=== PATIENT | female | born 1930 | race Caucasian/White ===

== ENCOUNTER 2016-12-31 14:36 | Emergency (ER) | payer MEDICARE, OTHER ==
[2016-12-31 17:09] LABS: BASOPHILS 0.2 %; BASOPHILS ABSOLUTE 0.01 10/3/uL (0.0-0.16); EOSINOPHILS 0.2 %; EOSINOPHILS ABSOLUTE 0.01 10/3/uL (0.0-0.53); ER CBC TAT 0 Hrs 13 Mins; IMMATURE GRANULOCYTES 0.2 %; IMMATURE GRANULOCYTES ABSOLUTE 0.01 10/3/uL (0.0-0.11); LYMPHOCYTES 24.2 %; LYMPHOCYTES ABSOLUTE 1.55 10/3/uL (0.67-4.30); MEAN CORPUSCULAR HEMOGLOB 31.7 pg (26.0-34.0); MEAN PLATELET VOLUME 12.7 fL (9.2-13.0); MONOCYTES 9.1 %; MONOCYTES ABSOLUTE 0.58 10/3/uL (0.21-1.20); NEUTROPHILS 66.1 %; NEUTROPHILS ABSOLUTE 4.24 10/3/uL (2.02-8.40); PLATELET COUNT 145 10/3/uL (150-400); RBC DISTRIBUTION WIDTH 13.3 % (12.0-16.0); WHITE BLOOD CELLS 6.4 10/3/uL (4.5-10.5)
[2016-12-31 17:11] LABS: HEMATOCRIT 42.8 % (36.0-48.0); HEMOGLOBIN 14.3 g/dL (12.0-16.0); MANUAL DIFF NO %; MEAN CORPUS HGB CONC 33.4 g/dL (32.0-36.0); MEAN CORPUSCULAR VOLUME 94.9 fL (80-100); RED CELL COUNT 4.51 10/6/uL (4.0-5.6)
[2016-12-31 17:23] LABS: A/G RATIO 1.1 (0.7-1.9); ALBUMIN 3.7 G/DL (3.5-5.0); ALKALINE PHOSPHATASE 60 U/L (45-117); BUN (BLOOD UREA NITROGEN) 12 MG/DL (6-23); CALCIUM, SERUM 9.6 MG/DL (8.5-10.4); CHLORIDE, SERUM 103 MMOL/L (96-112); CO2 (CARBON DIOXIDE) 31 MMOL/L (24-34); GFR AFRICAN AMERICAN 92 ML/MIN (>=60); GFR NON AFRICAN AMERICAN 80 ML/MIN (>=60); GLOBULIN 3.4 G/DL (2.5-4.1); GLUCOSE, SERUM 101 MG/DL (60-99); POTASSIUM, SERUM 3.6 MMOL/L (3.5-5.3); SGOT(AST) 21 U/L (5-40); SGPT(ALT) 18 U/L (5-65); SODIUM, SERUM 140 MMOL/L (135-148); TOTAL BILIRUBIN 0.5 MG/DL (0-1.2); TOTAL PROTEIN 7.1 G/DL (6.0-8.5)
[2016-12-31 17:24] LABS: INTERNATIONAL NORMAL RATI 1.1 UNITS (-); PROTIME (NOT ORD) 13.6 SEC (12.0-14.5)
[2016-12-31 17:55] LABS: SED RATE 6 MM/HR (0-20)
== END 2016-12-31 18:30 | disposition home or self-care (01) ==
LOC: ER 14:36
PROVIDERS: Emergency Medicine
DX: H53.8 Other visual disturbances (principal); Z88.0 Allergy status to penicillin
CPT/HCPCS: 70450; 71010; 80053; 85025; 85610; 85652; 93005; 96374; 99284; J2405

== ENCOUNTER 2017-01-22 15:00 | Inpatient (IN) | payer MEDICARE, OTHER ==
--- NOTE | ~2017-01-22 | CN ---
Consultation Report [facility] [address] [facility] [place]. [address] NAME: GALEN CORRALES : 32 STATUS : ADM IN [facility]#: [id number] AGE: 87 ADM/REG DATE : 01/23/17 MR#: [id number] REPORT SERV DATE: 01/23/17 DICTATED BY: EMMY MAYORGA DATE: 01/23/17 REPORT STATUS : Draft TRANSCRIBED BY: MODL DATE: 01/23/17 NEUROLOGY CONSULTATION DATE OF CONSULTATION: 01/23/2017 SQL DBA: Dr. Kalen Crews. WAVE SOLDER OFFBEARER: Dr. Gama. REASON FOR CONSULTATION: Sudden loss of vision and generalized weakness. HOSPITALIST: Dr. Ned Ahmadi. HISTORY OF PRESENT ILLNESS: The patient is an 87-year-old female who started to have trouble with her vision approximately two to three weeks ago. This occurred in her right eye. 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 She went to see an elder counselor here in [facility] (Dr. Gama), who did an examination and thought that she possibly had orbital pseudotumor. He referred her to Dr. Nigel dykes at [facility] for a biopsy and he felt that she needed to have permission from her chemical laboratory assistant, Dr. Crews before undergoing this. The patient was about to undergo her biopsy down at [facility] when she became significantly weak and was not able to stand. Consequently, she came to the emergency department at [facility] for further evaluation and treatment. According to the patient's son, the patient has experienced failure to thrive, nausea, and has not eaten much over the last six months. She has a history of adrenal mass and recently was found to have hilar adenopathy. At this point, the patient does not complain of any headache, eye pain, nausea, vomiting, photophobia, or phonophobia. PAST MEDICAL HISTORY: Coronary artery disease (status post coronary artery bypass grafting 2006), COPD (oxygen dependent), and hypertension. PAST SURGICAL HISTORY: Coronary artery bypass grafting 2006 with AVR, cholecystectomy, and partial colectomy. SOCIAL HISTORY: The patient is a . She denies use of tobacco. Does not drink alcohol or use illicit drugs. FAMILY HISTORY: Significant for coronary artery disease. REVIEW OF SYSTEMS: Please refer to HPI for pertinent positives. Consultation Report [place] [id number] [facility] [place]. [address] NAME: GALEN CORRALES : 32 STATUS : ADM IN PAT#: [id number] AGE: 87 ADM/REG DATE : 01/23/17 MR#: [id number] REPORT SERV DATE: 01/23/17 DICTATED BY: EMMY MAYORGA DATE: 01/23/17 REPORT STATUS : Draft TRANSCRIBED BY: BLESSING DATE: 01/23/17 PHYSICAL EXAMINATION: VITAL SIGNS: The patient is an 87-year-old female, who stands 5 feet 4 inches tall and weighs 172 pounds. She is afebrile. Heart rate 80, respiratory rate 18, O2 saturation on 3 L nasal cannula are 95%, blood pressure 143/65. NEURO: The patient is alert. She is oriented x4. She has a flat affect, but can communicate appropriately and follow simple commands. Speech is clear. Language is fluent. The patient has significant ptosis of the right eye. She has proptosis. Pupil on the right is 6 mm, on the left is 4 mm. Pupil on the right is sluggish to react. Funduscopic exam, positive red reflex bilaterally. Normal disc cup ratio. No nicking, hemorrhaging, or papillary edema on the left. Slight papillary edema on the right. 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 EOMs are intact on the left. Peripheral vision is intact on the left. No other cranial nerve deficits are noted upon examination. The patient can move all extremities x4. She has slight tremor with [id number], but no ataxia. No pronator drift. No asterixis. No dysmetria. Upper extremity strength is 4/5 bilaterally. Upper DTRs 1+ bilaterally. No reported deficits and sensation when comparing the upper extremities. Lower extremity strength is 3/5 bilaterally. Lower DTRs 1+ bilaterally. Downgoing toes. No reported sensory deficits. NECK: No carotid bruits, JVD, thyromegaly, lymphadenopathy. CHEST: Lung sounds are relatively clear. No cough. CARDIAC: Regular rate and rhythm. LABORATORY DATA: CBC within normal range. INR 1.2. BMP: Potassium is 3.8. Blood sugar is 138. LDH 337. BNP 117. RA factor within normal range. Sedimentation rate is 3. Urinalysis is mildly positive for UTI. CT of the chest shows right hilar and extensive mediastinal adenopathy likely metastatic disease bilateral adrenal masses, which may represent metastasis, spiculated nodule in the left upper lobe, possible primary neoplasm, aneurysmal dilatation of the distal ascending aorta, COPD, and coronary artery bypass grafting. ASSESSMENT: 1. Sudden loss of vision of the right eye; etiology unknown. a. Total ophthalmoplegia of the right eye. At this point, the patient will undergo an MRI of the brain with and without gadolinium to rule out metastasis and/or tumor. MRA of the head and neck with gadolinium to rule out aneurysm and MRI of the orbits with fatty suppression to include the cavernous sinus. b. 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 The patient's elder counselor in [place] will be contacted for possible transfer for biopsy and we will progress from there. Also additional autoimmune lab work will be checked. 2. 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 3. Mild urinary tract infection. Thank you again for including us in consultation. We will continue to follow with you. Consultation Report [address] [address] NAME: GALEN CORRALES : 32 STATUS : ADM IN [facility]#: [id number] AGE: 87 ADM/REG DATE : 01/23/17 MR#: [id number] REPORT SERV DATE: 01/23/17 DICTATED BY: EMMY MAYORGA DATE: 01/23/17 REPORT STATUS : Draft TRANSCRIBED BY: BLESSING DATE: 01/23/17 BALBIR/BLESSING Emmy Mayorga DNP, [facility]- / [id number] CC: Nicolas Brito M.D. Mark Thel, M.D. Gene K. Lee, M.D. Ryan Scott McNamara, M.D.
--- NOTE | ~2017-01-22 | HP ---
History And Physical [place] [address] [place]. [address] NAME: GALEN CORRALES : 32 STATUS : ADM Charley PAT#: [id number] AGE: 87 ADM/REG DATE : 01/22/17 MR#: [id number] REPORT SERV DATE: 01/23/17 DICTATED BY: MARIBELL KING DATE: 01/22/17 REPORT STATUS : Draft TRANSCRIBED BY: MODL DATE: 01/22/17 DATE OF ADMISSION: 01/22/2017 CHIEF COMPLAINT: Progressive weakness, nausea, and recent diagnosis of possible orbital pseudotumor. HISTORY OF PRESENT ILLNESS: This is a very pleasant 87-year-old female. She does have a history of coronary artery disease, status post prior CABG; history of aortic valve replacement in 2006; biological COPD, oxygen dependent on 4 L of oxygen per nasal cannula; also chronic back pain; and hyperlipidemia. At about two to three weeks ago, she started to experience trouble vision and in fact she become blind as well as according to the patient and the family progressive weakness. The patient seen a couple of Ophthalmologists during this period of time including last Dr. Gama who ordered an MRI of her orbits and the results of the MRI showed a questionable possible orbital pseudotumor. She has been referred after that to Dr. Manning, who referred the patient for a biopsy at [facility]. During this period of time, the patient has significant nausea and decreased appetite and progressive weakness. No headaches. No chest pain or increasing shortness of breath. She went to [facility] yesterday and they evaluated her and they wanted the preoperative clearance from her section 8 property manager, Dr. Crews. The patient sought preoperative clearance and she came back being awaiting from [facility] to be evaluated for possible biopsy of the ocular mass. However, she became so weak to the point that she is barely walking. She did not have she has generalized weakness. She does not have any again headache, chest pain, or shortness of breath. No PND. No orthopnea. No abdominal pain. No nausea or vomiting. No diarrhea or constipation. No increased urinary frequency or urgency. No other complaints. After initial evaluation in the emergency room, Hospitalist Service has been asked for admission, further evaluation, and treatment. 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 PAST SURGICAL HISTORY: Includes cholecystectomy and partial colectomy. SOCIAL HISTORY: She denies tobacco, she quit in 2006. No alcohol. No IV drugs. ALLERGIES: SHE IS ALLERGIC TO PENICILLIN AND IRON. FAMILY HISTORY: Significant for coronary artery disease. MEDICATIONS AT HOME: Include Norvasc, Artificial Tears, aspirin, [place], [place], losartan, MS Contin, prednisone, and Crestor. REVIEW OF SYSTEMS: A 14-point review of systems has been obtained and pertinent positive has been listed into the history of present illness. Otherwise, negative except those underlying above. History And Physical [address] [address] NAME: GALEN CORRALES : 32 STATUS : ADM Charley PAT#: [id number] AGE: 87 ADM/REG DATE : 01/22/17 MR#: [id number] REPORT SERV DATE: 01/23/17 DICTATED BY: MARIBELL KING DATE: 01/22/17 REPORT STATUS : Draft TRANSCRIBED BY: BLESSING DATE: 01/22/17 PHYSICAL EXAMINATION: VITAL SIGNS: Currently, the patient is afebrile. Blood pressure was 160/75, heart rate 81, respiratory rate 12, and saturating 100% on room air. GENERAL: She is a very pleasant, well-developed, well-nourished female, in no acute distress. She is alert and oriented x3. She is nonfocal. She follows all commands appropriately. HEENT: Show pupils are equal, round, and reactive to light. Extraocular movements intact. NECK: No JVD. No lymphadenopathy. No thyromegaly appreciated. CHEST: Eval shows bilateral air entry. Clear anteroposterior. No wheezes, crackles, or rhonchi appreciated. CARDIOVASCULAR: She has regular rate and rhythm. S1, S2 positive. No S3, no S4. No murmurs, rubs, or gallops appreciated. ABDOMEN: Soft, positive bowel sounds. Nontender. No guarding. No rebound. EXTREMITIES: No clubbing, cyanosis, or edema. NEUROLOGIC: She is alert and oriented x3. Nonfocal. She follows all her commands appropriately. LABORATORY DATA: Labs from today include sodium 143, potassium 2.8, chloride 104, CO2 of 32, BUN 19, creatinine 0.69, glucose is 113. Her total bilirubin is 0.8, alkaline phosphatase 51, ALT 27, AST 33. White count 12.2, hemoglobin 14.2, hematocrit 41.6, platelets are 189. Her UA has shown positive for just trace leukocyte esterase and 7 white cells. Her chest x-ray, portable, performed in the emergency room showed prior CABG and possible superior right peripheral hilar adenopathy unchanged. ASSESSMENT AND PLAN: This is a very pleasant 87-year-old female with: 1. Progressive weakness with failure to thrive. 2. 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 3. Possible superior right peripheral hilar adenopathy. 4. Hypokalemia. 5. History of coronary artery disease, status post CABG. 6. Chronic obstructive pulmonary disease, oxygen dependent. 7. Hypertension. 8. Chronic back pain. PLAN: 1. The patient is going to be admitted for observation. We are going to put her on IV fluids. We are going to do an MRI of the brain as well as of the orbits in the morning and CT of the chest. We are going to check an ESR and a CRP and double-stranded DNA and JAM as well as rheumatoid factor and consult Neurology for further recommendation and frequent neurochecks. 2. Hypokalemia. We are going to replace her electrolytes. 3. History of coronary artery disease, status post CABG. Continue her home medications. 4. Possible on the superior right peripheral hilar adenopathy. We are going to get a CT of the chest with contrast. 5. Hypertension. Continue her home medication. Provide p.r.n. hydralazine as needed. 6. Chronic back pain. We will continue her home medications. History And Physical [address] [address] NAME: GALEN CORRALES : 32 STATUS : ADM Charley PAT#: [id number] AGE: 87 ADM/REG DATE : 01/22/17 MR#: [id number] REPORT SERV DATE: 01/23/17 DICTATED BY: MARIBELL KING DATE: 01/22/17 REPORT STATUS : Draft TRANSCRIBED BY: MODL DATE: 01/22/17 7. Hyperlipidemia. We will continue her home medications. Further workup and recommendation pending above. It is worthwhile to note that the patient is going to be followed by Hospitalist Service. CF/MODL Maribell King M.D. / [id number] CC: Nicolas Peng N.P.
--- NOTE | ~2017-01-22 | DS ---
Discharge Summary [facility] [address] [place]. [address] NAME: GALEN CORRALES : 32 STATUS : ADM IN PAT#: [id number] AGE: 87 ADM/REG DATE : 01/23/17 MR#: [id number] REPORT SERV DATE: 02/04/17 DICTATED BY: KEISHA AYOUB II DATE: 02/03/17 REPORT STATUS : Draft TRANSCRIBED BY: MODCynthia DATE: 02/03/17 ADMISSION DATE: 01/23/2017 DISCHARGE DATE: 02/04/2017 DISCHARGE DIAGNOSES: 1. Metastatic small cell lung cancer. 2. Acute on chronic hypoxic respiratory failure. 3. Chronic obstructive pulmonary disease. 4. 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 5. Hypertension. 6. Hypokalemia. 7. Leukocytosis. CONSULTS: 1. iRcardo Emerson M.D. With [facility]. 2. Alex Langford M.D. with Pulmonary. 3. Ronak Perry M.D. with Neurology. BRIEF HISTORY OF PRESENT ILLNESS: The patient is an 87-year-old female with the above history, who presented to [facility] initially due to weakness, nausea, and ophthalmoplegia. For detailed history and physical examination, please see Dr. Lemos's note from 01/22/2017. HOSPITAL COURSE: For details of the patient's hospital course through 01/27/2017, please see Amber Burns's note from that date. I subsequently took over the patient's care. She had a bronch with biopsy taken and pathology subsequently came back with small cell carcinoma. Since then, Dr. Emerson has initiated chemotherapy with carboplatin and etoposide for which she is completed cycle 1 and will receive her next round on 02/10/2017. The patient tolerated the chemotherapy quite well. She has had bouts of hypotension, so her Norvasc and losartan has been held especially as her creatinine has started to rise slightly. She also had some worsening hypoxia and was noted to drop down in the 70s going to the bathroom. Chest x-ray showed increasing bibasilar atelectasis and mild interstitial edema. She received a couple doses of Lasix yesterday in the night. Currently, she denies any symptoms of significant shortness of breath and her cough has improved. Her white count increased to 14 today; however, there is no obvious source of infection and her urinalysis is negative. She is debilitated and PT has recommended detention. At this point, she is pending placement and will go to [facility] hopefully tomorrow. DISCHARGE MEDICATIONS: 1. Folic acid 1 mg p.o. daily. 2. MS Contin 30 mg p.o. q.8 hours. 3. [place] 10/325 mg p.o. q.6 hours p.r.n. 4. Deltasone 40 mg p.o. with lunch. 5. Crestor 20 mg p.o. q.h.s. 6. Artificial Tears b.i.d. p.r.n. DISCHARGE INSTRUCTIONS: The patient will be discharged to [facility] for further rehab. Discharge Summary [address] [address] NAME: GALEN CORRALES : 32 STATUS : ADM IN [facility]#: [id number] AGE: 87 ADM/REG DATE : 01/23/17 MR#: [id number] REPORT SERV DATE: 02/04/17 DICTATED BY: KEISHA AYOUB II DATE: 02/03/17 REPORT STATUS : Draft TRANSCRIBED BY: BLESSING DATE: 02/03/17 She will need to follow with Dr. Emerson on 02/10/2017 for cycle 2 of chemotherapy. DICTATED BY: MD MARLON Malik II/BLESSING Keisha Ayoub II, MD / [id number] CC: MD Renetta Malik II, M.D.
--- NOTE | ~2017-01-22 | DS ---
Discharge Summary [facility] [address] [place]. [address] NAME: GALEN CORRALES : 32 STATUS : ADM IN PAT#: [id number] AGE: 87 ADM/REG DATE : 01/23/17 MR#: [id number] REPORT SERV DATE: 02/04/17 DICTATED BY: JODY BURNS DATE: 02/04/17 REPORT STATUS : Draft TRANSCRIBED BY: MODL DATE: 02/04/17 ADMISSION DATE: 01/23/2017 DISCHARGE DATE: 02/04/2017 DISCHARGE DIAGNOSES: 1. Metastatic small cell lung cancer. 2. Iyzgd-vp-sobzoto hypoxic respiratory failure. 3. Chronic obstructive pulmonary disease. 4. 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 5. Hypertension. 6. Hypokalemia. 7. Leukocytosis. CONSULTATIONS: 1. Oncology, Dr. Emerson. 2. Pulmonology, Dr. Langford. 3. Neurology, Dr. Perry. COURSE AT HOSPITAL STAY: Please refer to the history and physical dictated by Dr. Maribell Lemos on 01/22/2017, for complete admission details as well as consultation note and interim notes. This patient is an 87-year-old female who presented with the above history. She did initially have complaints regarding weakness, nausea, and ophthalmoplegia. The patient did undergo a bronchoscopy, which pathology revealed small cell carcinoma. Oncology was consulted and the patient did receive one cycle of chemotherapy via PROFESSOR OF LITERACY-16 and carboplatin. She will receive cycle 2 on 02/10/2017. The patient did tolerate chemotherapy. O2 at this time is at baseline. The patient has had periods of hypertension, blood pressure medications have been held, and the patient has been monitored. Repeat chest x-ray has shown bibasilar atelectasis and mild interstitial edema. The patient did receive several doses of Lasix. The patient at this time is in stable condition and will be transferred to rehab for continued rehabilitation. She will follow up with Oncology on 02/10/2017, for possible cycle 2 of carboplatin and PROFESSOR OF LITERACY-16. power manager has been working with the patient. DISCHARGE MEDICATIONS: 1. Folic acid 1 mg p.o. daily. 2. MS Contin 30 mg one p.o. every eight hours. 3. Hydrocodone 10/325 mg one every six hours p.r.n. 4. Prednisone 10 mg one p.o. every day. 5. Crestor 20 mg one p.o. at bedtime. 6. Artificial Tears b.i.d. p.r.n. This discharge took less than 30 minutes. DICTATED BY: Jody Burns NP Discharge Summary [address] [address] NAME: GALEN CORRALES : 32 STATUS : ADM IN [facility]#: [id number] AGE: 87 ADM/REG DATE : 01/23/17 MR#: [id number] REPORT SERV DATE: 02/04/17 DICTATED BY: JODY BURNS DATE: 02/04/17 REPORT STATUS : Draft TRANSCRIBED BY: BLESSING DATE: 02/04/17 /BLESSING Jody Burns NP / [id number] CC: Nicolas Brito M.D.
--- NOTE | ~2017-01-22 | CN ---
Consultation Report [facility] [address] [place]. [address] NAME: GALEN QUIÑONES : 32 STATUS : ADM IN PAT#: [id number] AGE: 87 ADM/REG DATE : 01/23/17 MR#: [id number] REPORT SERV DATE: 01/24/17 DICTATED BY: RICARDO CLEARY III DATE: 01/24/17 REPORT STATUS : Draft TRANSCRIBED BY: MODCynthia DATE: 01/24/17 CONSULTATION DATE OF CONSULTATION: 01/24/2017 REASON FOR CONSULTATION: Small cell lung cancer. HISTORY OF PRESENT ILLNESS: Ms. Quiñones is an 87-year-old female, who developed right eye vision loss roughly two weeks ago. Around this time, she also developed profound fatigue, but these progressively worsened over the past couple of weeks. She did not have any cough, shortness of breath, or hemoptysis. She also denies any recent weight loss. She does note there is some shortness of breath with exertion, has been slowly worsening. Workup for her right eye vision loss revealed a periorbital mass. As part of workup for this, a chest x- ray showed a mediastinal mass. She was admitted on 01/23/2017 for worsening nausea, vomiting, and poor appetite. A CT scan did confirm a mediastinal mass and lymphadenopathy as well as likely adrenal metastasis. She underwent bronchoscopy with EBUS with preliminary pathology revealing a small cell lung cancer. Presently, she is comfortable without any shortness of breath or chest pain. Her nausea is much improved with antiemetics and she has been eating more since being in the hospital. PAST MEDICAL HISTORY: 1. Coronary artery disease. 2. Aortic valve disease. 3. COPD. 4. History of CVA. 5. Hypertension. 6. Hyperlipidemia. ALLERGIES: SHE HAS A RASH WITH PENICILLIN. CURRENT MEDICATIONS: Her home med list was reviewed and per the home med list. SOCIAL HISTORY: She has a previous heavy smoking history of 55-pack years, but did stop a while ago. FAMILY HISTORY: Significant for a son who had a widely metastatic cancer. REVIEW OF SYSTEMS: A comprehensive review of systems was performed and is negative unless noted in the HPI. PHYSICAL EXAMINATION: VITAL SIGNS: Blood pressure is 117/56, temperature is 98.3, pulse is 101, respiratory rate is 18. GENERAL: This is a well-developed elderly female, in no acute distress. Consultation Report [place] [address] [place]. [address] NAME: GALEN QUIÑONES : 32 STATUS : ADM IN PAT#: [id number] AGE: 87 ADM/REG DATE : 01/23/17 MR#: [id number] REPORT SERV DATE: 01/24/17 DICTATED BY: RICARDO CLEARY III DATE: 01/24/17 REPORT STATUS : Draft TRANSCRIBED BY: MODL DATE: 01/24/17 EYES: Left eye with intact extraocular muscles. The right eye appears fixated. There are anicteric sclerae. NECK: Supple with no masses or thyroid enlargement. No JVD. CARDIOVASCULAR: Regular rate and rhythm with no audible murmurs. There is no peripheral edema. LUNGS: Clear to auscultation bilaterally with normal respiratory effort. ABDOMEN: Soft, nondistended, and nontender with no hepatosplenomegaly. SKIN: Warm and dry with good skin turgor. There is no jaundice. LYMPHATIC: Negative for any cervical, supraclavicular, or axillary lymphadenopathy. PSYCH: She is alert, oriented, and comprehends our conversation with normal judgment and affect. LABORATORY DATA: Her lab work was reviewed and with normal renal function. Her CT imaging was personally reviewed. There is a large, bulky mediastinal and hilar lymphadenopathy. There are also adrenal masses bilaterally as well as a liver nodule. There are no noted bone lesions. ASSESSMENT AND PLAN: 1. Likely metastatic small cell lung cancer. I did review the suspected diagnosis and prognosis. We will await final pathology. I did explain treatment options of palliative chemotherapy. She does have a borderline performance status. I will likely start carboplatin and etoposide once the pathology is finalized. 2. Right eye mass. I do suspect this is likely a metastatic lesion. BMA/BLESSING Ricardo Cleary III, M.D. / [id number] CC: Nicolas Brito M.D.
--- NOTE | ~2017-01-22 | OP ---
Record Of Operation [facility] [address] [place]. [address] NAME: GALEN CORRALES : 34 STATUS : ADM IN PAT#: [id number] AGE: 87 ADM/REG DATE : 01/23/17 MR#: [id number] REPORT SERV DATE: 01/24/17 DICTATED BY: LEOBARDO LANGFORD IV TADEO DATE: 01/24/17 REPORT STATUS : Draft TRANSCRIBED BY: MODCynthia DATE: 01/24/17 DATE OF PROCEDURE: 01/24/2017 EBUS PROCEDURE NOTE PREOPERATIVE DIAGNOSIS: Conglomerate nodes in the mediastinum with peripheral nodules concerning for bronchogenic carcinoma, likely small cell. 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 PROCEDURE: Bronchoscopy with EBUS and sampling of the 4R area conglomerate lymph node mass. INDICATIONS: Pulmonary nodules with conglomerate adenopathy throughout the mediastinum. CONTRAINDICATIONS: None. CONSENT: The risks, benefits, and alternative evaluations were discussed with the patient and her family. Possible complications reviewed to include air leak around the lung, bleeding, infection, low oxygen level, and even potentially . The consent is signed and witnessed on the front of the chart. PREOPERATIVE LABS: The patient's platelet count was 187,000. SENIOR NET SOFTWARE ENGINEER: Leobardo Langford M.D. METHOD: The patient was taken to the bronchoscopy suite at [facility] and prepared in the usual manner. Anesthesiology was consulted to provide airway management as well as sedation. This was provided via an LMA airway. Once the airway was secured, the patient was sedated, the bronchoscope was advanced through the LMA without difficulty. It sat appropriately on the vocal cords. The vocal cords moved appropriately with respiratory effort. Total of 20 mL of 2% lidocaine solution was used throughout the procedure to provide airway anesthesia. The distal trachea was boggy and slightly hyperemic with widening of the main dona. There were slightly ectatic airways with bronchial pits. All airways were patent now beyond the fourth-generation bronchi with normal anatomy. After inspection had occurred, there were no endobronchial lesions or abnormal secretions. After inspection had occurred, the bronchoscope was removed, and the EBUS scope was advanced down the trachea. There was extensive adenopathy/mass through the 4L, 4R, and 2R regions. The level 7 lymph node was also markedly enlarged. A sampling was obtained in the 4R region. Two samples were provided for slide and 5 for cell block and 2 for flow cytometry. On all but one of the samplings for slide and 1 for cell block, suction was provided to the needles. On each sampling, the needle was advanced 25 to 35 times. On initial review, there were malignant cells probably representing small-cell carcinoma; however, we will do flow cytometry for lymphoma. The patient, otherwise, tolerated the procedure well. After adequate sampling had been obtained, the EBUS scope was removed and the bronchoscope was then readvanced. There was some blood staining through the airways with appropriate puncture sites in the 4R region. There was no active bleeding. Estimated blood loss was Record Of Operation [address] [place]. [address] NAME: GALEN CORRALES : 34 STATUS : ADM IN [facility]#: [id number] AGE: 87 ADM/REG DATE : 01/23/17 MR#: [id number] REPORT SERV DATE: 01/24/17 DICTATED BY: LEOBARDO LANGFORD IV DATE: 01/24/17 REPORT STATUS : Draft TRANSCRIBED BY: BLESSING DATE: 01/24/17 less than 5 mL. The procedure was stopped at that time, and the patient was recovered. She was informed of the results. I will talk with the family. We will consult Oncology. SAAD/BLESSING Leobardo Langford IV, M.D. / [id number] CC: Nicolas Brito M.D.
--- NOTE | ~2017-01-22 | CN ---
Consultation Report [facility] [address] [place]. [address] NAME: GALEN QUIÑONES : 34 STATUS : ADM IN [facility]#: [id number] AGE: 87 ADM/REG DATE : 01/23/17 MR#: [id number] REPORT SERV DATE: 01/23/17 DICTATED BY: LEOBARDO LANGFORD IV DATE: 01/23/17 REPORT STATUS : Draft TRANSCRIBED BY: MODCynthia DATE: 01/23/17 PULMONARY CONSULTATION DATE OF CONSULTATION: 01/23/2017 REASON FOR REQUEST: Mediastinal mass/adenopathy with pulmonary nodules. HISTORY OF PRESENT ILLNESS: History was obtained from the records and from the patient. Ms. 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 The patient was in her normal state of health until early December when she developed acute onset of vision loss in the right eye. She had an MRI demonstrating a thickening of a muscle for which she underwent evaluation in [place]. As part of that evaluation, a chest x-ray was obtained, which demonstrated a right peritracheal and hilar fullness with a rotated film. The patient has had progressive weakness and for which she presented to the emergency room. 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 The patient denies cough, sputum production, fevers, chills, or sweats. She has had no significant weight loss. She has a nebulizer that she uses p.r.n. at home though she is on no maintenance medications. She is on 4 L supplemental oxygen chronically with a very limited exercise tolerance. PULMONARY HISTORY: Remarkable for no history of childhood asthma. She is aware of the diagnosis of COPD. She denies history of pneumonia. She has a more than [id number] smoking history having quit in 2006. 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 She is reportedly up to date on both seasonal influenza vaccine as well as Pneumovax. PAST MEDICAL HISTORY/MEDICAL ILLNESSES: 1. Coronary artery disease. 2. Aortic valvular disease. 3. COPD. 4. Hypoxemia. 5. Cerebrovascular disease. 6. Hypertension. 7. Elevated cholesterol. 8. Recent loss of vision and ophthalmoplegia in the right eye. 9. Pulmonary nodules. 10.Extensive mediastinal adenopathy/mass. SURGERIES: Consultation Report [address] [place]. [address] NAME: GALEN QUIÑONES : 34 STATUS : ADM IN [facility]#: [id number] AGE: 87 ADM/REG DATE : 01/23/17 MR#: [id number] REPORT SERV DATE: 01/23/17 DICTATED BY: LEOBARDO LANGFORD IV DATE: 01/23/17 REPORT STATUS : Draft TRANSCRIBED BY: BLESSING DATE: 01/23/17 1. Coronary artery bypass grafting. 2. Aortic root repair as well as bioprosthetic aortic valve replacement. 3. Bilateral carotid surgeries. 4. Cholecystectomy. 5. Appendectomy. 6. Partial colectomy for a polyp. ALLERGIES: SHE IS DEVELOPS A RASH FROM PENICILLIN. SHE IS INTOLERANT OF IRON. CURRENT MEDICATIONS: Cozaar 100 mg daily, prednisone 40 mg daily, DuoNebs 4 times a day, folic acid 1 mg daily, heparin 5000 units q.8 hours, Lipitor 40 mg daily, MS Contin 30 mg q.8 hours, Norvasc 5 mg daily, multivitamin daily, and thiamine 100 mg daily. SOCIAL HISTORY: Remarkable for the previous tobacco use as above. There is no alcohol or illicit drug use. She is , has three children. FAMILY HISTORY: Remarkable for both parents with coronary artery disease and hypertension. REVIEW OF SYSTEMS: 14-systems reviewed and pertinent positives as noted above. PHYSICAL EXAMINATION: GENERAL: This is a pleasant elderly female, lying in bed with the right eye closed, in no distress. She is wearing supplemental oxygen. She is alert, awake, and oriented. VITAL SIGNS: Temperature is 98.7, pulse is 75, respiratory rate is 18, saturation 97% on 4 L, and blood pressure is 143/60. HEENT: Normocephalic and atraumatic. Her left eye extraocular movements intact and pupil does react to light. She has nasal cannula in place. She has no oral lesions. She has a Mallampati II to III airway. NECK: Without any palpable lymphadenopathy or thyromegaly. CHEST: The patient has decreased breath sounds symmetrically with a prolonged expiratory phase. There are scattered expiratory rhonchi. No true wheezes are noted. She has a sternotomy scar. CARDIOVASCULAR: She has 2+ carotid upstrokes. No obvious bruit. She has a regular S1, S2 with a 1/6 systolic murmur at the right upper sternal border. No clear S3 is noted. Peripheral pulses are diminished. Jugular venous pulsations are 6 cm in the center recumbent position. ABDOMEN: Protuberant, soft. There are hypoactive bowel sounds. There is no palpable hepatosplenomegaly or masses. EXTREMITIES: Demonstrate no cyanosis, clubbing, edema, or palpable cords. NEUROLOGIC: The patient is able to move all extremities. Strength is 5/5 and sensation is intact to light touch. LABORATORY DATA: Chest CT scan demonstrates several small subcentimeter nodules with a Consultation Report [address] [place]. [address] NAME: GALEN QUIÑONES : 34 STATUS : ADM IN [facility]#: [id number] AGE: 87 ADM/REG DATE : 01/23/17 MR#: [id number] REPORT SERV DATE: 01/23/17 DICTATED BY: LEOBARDO LANGFORD IV DATE: 01/23/17 REPORT STATUS : Draft TRANSCRIBED BY: BLESSING DATE: 01/23/17 larger more dominant nodule in the left upper lobe. There is an extensive mediastinal mass/adenopathy with areas of necrosis. There is enlargement of both adrenal glands more consistent with metastatic lesions than adenomas. CBC: Hemoglobin 14, hematocrit 41, platelet count was 185,000, and white blood cell count is 10.1. INR is 1.2. PTT is 26.4. Chemistry: Sodium 143, potassium 3.8, chloride 108, bicarb 30, BUN 15, creatinine 0.66, glucose of 138, magnesium was 1.5, corrected to 2.2. Phos is 2.4. ASSESSMENT AND PLAN: 1. Respiratory. The patient likely has stage IV lung cancer based on the overall appearance. The patient does warrant diagnosis, though there are likely be limited treatment options based on her age and performance status. EBUS will be obtained tomorrow for diagnosis. Anoro Ellipta will be given 1 puff daily. DuoNeb will be discontinued. She will be given albuterol 4 times a day and q.2 hours as needed. Oximetry decreased to 3 L and titrated to maintain saturations in the 90% to 94% range. 2. Renal. We will replace the patient's phosphate and check mag, phos, and K tomorrow. 3. Hematologic. We will hold morning heparin for the procedure. Thank you for consulting us. We will follow the patient with you. SAAD/BLESSING Leobardo Langford IV, M.D. / [id number] CC: Kenji Trivedi M.D.
--- NOTE | ~2017-01-22 | IDS ---
Interim Discharge Summary [facility] [address] [place]. [address] NAME: GALEN CORRALES : 34 STATUS : ADM IN PAT#: [id number] AGE: 87 ADM/REG DATE : 01/23/17 MR#: [id number] REPORT SERV DATE: 01/27/17 DICTATED BY: JODY BURNS DATE: 01/27/17 REPORT STATUS : Draft TRANSCRIBED BY: MODCynthia DATE: 01/27/17 ADMISSION DATE: 01/23/2017 DISCHARGE DATE: DATE OF DISCHARGE: Unknown. DATE OF INTERIM NOTE: 01/27/2017. INTERIM DIAGNOSES: 1. Metastatic disease with unknown primary, pathology pending. 2. Debility. 3. Right ophthalmoplegia. 4. Hypertension. 5. Hypokalemia. CONSULTATIONS: 1. Oncology, Dr. Emerson. 2. Pulmonology, Dr. Langford, signed off. 3. Neurology, Emmy Stokes DNP, [facility], signed off. IMAGIN. Chest x-ray on 01/22/2017, impression, prior CABG. Possible superior right paratracheal adenopathy, unchanged. 2. CT of chest on 01/23/2017, impression, right hilar and extensive mediastinal adenopathy, likely metastatic disease. Bilateral adrenal mass, which may represent metastasis and spiculated nodule in left upper lobe, possibly primary neoplasm. Minimal bilateral pleural fluid. Small soft tissue nodules medial to the spleen, which may represent adenopathy or accessory splenic nodule. 3. MRA of brain on 01/23/2017, intracranial MRA demonstrates some mild atherosclerotic changes. However, carotid siphon cavernous portion demonstrated no evidence of aneurysm. 4. 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 There is some mild proptosis of the right orbit. Differential diagnosis of lymphoma should be also considered and that this can mimic orbital pseudotumor. Moderate to marked generalized atrophy. 5. CT of abdomen and pelvis on 01/24/2017, impression, bilateral adrenal gland metastasis. Suspect liver lesion consistent with metastasis. A well-marginated tumor arising in rectal wall on the right side with submucosal erosions seen. COURSE OF HOSPITAL STAY: Please refer to history and physical dictated by Dr. Maribell Lemos on 01/22/2017 as well as consultation notes by Dr. Langford, Dr. Emerson, and Emmy Stokes, [place]-. This patient is an 87-year-old female, who presented with progression of weakness, nausea, and recently diagnosed with orbital pseudotumor. The patient does present with a history of coronary artery disease, post CABG, history of aortic valve replacement in 2006, COPD, Interim Discharge Summary [address] [address] NAME: GALEN CORRALES : 34 STATUS : ADM IN PAT#: [id number] AGE: 87 ADM/REG DATE : 01/23/17 MR#: [id number] REPORT SERV DATE: 01/27/17 DICTATED BY: JODY BURNS DATE: 01/27/17 REPORT STATUS : Draft TRANSCRIBED BY: BLESSING DATE: 01/27/17 oxygen dependent of 4 L. 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 She had been evaluated outpatient by an guest relations coordinator as well as being seen at [facility]. As noted above, the patient was brought in due to progression of weakness. Imaging was obtained and the patient was admitted to the hospital for further evaluation and treatment. 1. Metastatic disease of unknown primary as noted above. Pulmonary was consulted. The patient underwent EBUS on 12/25/2016. Pathology is pending at this time. Oncology was consulted. The patient has been seen by Dr. Emerson at this time. The patient may undergo chemotherapy versus hospice. The plan of care is pending pathology. 2. Debility. The patient stated that prior to admission she has been bedridden for greater than 10 days. Physical therapy evaluation was completed per the recommendations for patient to be discharged to a jail facility. 3. Right ophthalmoplegia. Neurology was consulted. Imaging was obtained, which is noted above. Possible biopsy as outpatient is planned at this time. 4. Hypertension. The patient's blood pressure has remained stable at this time, it is 100/58. No treatment is needed at this time. 5. Hypokalemia. Potassium is 3.4, this will replace per protocol. 6. COPD. The patient is oxygen dependent on 4 L. At this time, the patient is at baseline. DISPOSITION: Plan of care at this time is unknown pending pathology. Unsure if the patient will undergo chemotherapy versus hospice. The patient will be followed by Dr. Charly Parrish. [facility]/BLESSING Jody Burns NP / [id number] CC: Nicolas Brito M.D.
[2017-01-22 16:16] LABS: ASCORBIC ACID (UR NOT ORDER) NEG (NEG); BILIRUBIN, URINE NEGATIVE (NEG); ER URINALYSIS TAT 0 Hrs 11 Mins; KETONE, URINE NEGATIVE (NEG); LEUKOCYTE ESTERASE(NOT OR TRACE (NEG); NITRITE (URINE) NEG (NEG); WBC (NOT ORDERED) (RFLEX) 7 (0-5)
[2017-01-22 16:16] LABS: BASOPHILS 0 %; EOSINOPHILS 0.1 %; EOSINOPHILS ABSOLUTE 0.01 10/3/uL (0.0-0.53); HEMATOCRIT 41.6 % (36.0-48.0); HEMOGLOBIN 14.2 g/dL (12.0-16.0); IMMATURE GRANULOCYTES 0.4 %; IMMATURE GRANULOCYTES ABSOLUTE 0.05 10/3/uL (0.0-0.11); LYMPHOCYTES 7.6 %; LYMPHOCYTES ABSOLUTE 0.93 10/3/uL (0.67-4.30); MEAN CORPUS HGB CONC 34.1 g/dL (32.0-36.0); MEAN CORPUSCULAR HEMOGLOB 30.5 pg (26.0-34.0); MONOCYTES 1.8 %; MONOCYTES ABSOLUTE 0.22 10/3/uL (0.21-1.20); NEUTROPHILS 90.1 %; NEUTROPHILS ABSOLUTE 11.02 10/3/uL (2.02-8.40); RBC DISTRIBUTION WIDTH 13.3 % (12.0-16.0); RED CELL COUNT 4.65 10/6/uL (4.0-5.6)
[2017-01-22 16:18] LABS: ER CBC TAT 0 Hrs 07 Mins; MANUAL DIFF NO %; MEAN CORPUSCULAR VOLUME 89.5 fL (80-100); PLATELET COUNT 189 10/3/uL (150-400); WHITE BLOOD CELLS 12.2 10/3/uL (4.5-10.5)
[2017-01-22 16:40] LABS: A/G RATIO 1.1 (0.7-1.9); ALBUMIN 3.1 G/DL (3.5-5.0); ALKALINE PHOSPHATASE 51 U/L (45-117); CHLORIDE, SERUM 104 MMOL/L (96-112); CO2 (CARBON DIOXIDE) 32 MMOL/L (24-34); CREATININE 0.69 MG/DL (0.55-1.02); GFR AFRICAN AMERICAN 92 ML/MIN (>=60); GFR NON AFRICAN AMERICAN 79 ML/MIN (>=60); GLUCOSE, SERUM 113 MG/DL (60-99); SGOT(AST) 33 U/L (5-40); SGPT(ALT) 27 U/L (5-65); SODIUM, SERUM 143 MMOL/L (135-148); TOTAL BILIRUBIN 0.8 MG/DL (0-1.2); TOTAL PROTEIN 5.8 G/DL (6.0-8.5)
[2017-01-22 16:44] LABS: BUN (BLOOD UREA NITROGEN) 19 MG/DL (6-23); CALCIUM, SERUM 7.8 MG/DL (8.5-10.4); GLOBULIN 2.7 G/DL (2.5-4.1); POTASSIUM, SERUM 2.8 MMOL/L (3.5-5.3)
[2017-01-22] MEDS ORDERED: NORCO1 TAB PO (18:05)
[2017-01-22] MEDS ORDERED: MSCONTIN PO (18:05)
[2017-01-22] MEDS ORDERED: NORV5 PO (18:06)
[2017-01-22] MEDS ORDERED: P20 PO (18:06)
[2017-01-22] MEDS ORDERED: COZAAR100 MG PO (18:06)
[2017-01-22] MEDS ORDERED: CRESTOR20 MG PO (18:07)
[2017-01-22] MEDS ORDERED: ALKA-SELTZER O1 EACH PO (18:08)
[2017-01-22] MEDS ORDERED: REFRESH OPH (18:09)
[2017-01-23 02:24] LABS: INTERNATIONAL NORMAL RATI 1.2 UNITS (-); PARTIAL THROMBO TIME 26.4 SEC (22.5-37.2); PROTIME (NOT ORD) 14.8 SEC (12.0-14.5)
[2017-01-23 02:50] LABS: C-REACTIVE PROTEIN 5.1 MG/L (<8.0); FREE T4 1.16 NG/DL (0.76-1.46); PHOSPHORUS, SERUM 2.4 MG/DL (2.5-4.5); TROPONIN I 0.02 NG/ML (<0.05); ULTRASENSITIVE TSH 0.529 MCIU/ML (0.358-3.740)
[2017-01-23 02:51] LABS: FOLATE 11.3 NG/ML (>5.2)
[2017-01-23 05:57] LABS: BASOPHILS 0 %; EOSINOPHILS 0 %; IMMATURE GRANULOCYTES 0.6 %; IMMATURE GRANULOCYTES ABSOLUTE 0.06 10/3/uL (0.0-0.11); LYMPHOCYTES ABSOLUTE 1.41 10/3/uL (0.67-4.30); MEAN CORPUS HGB CONC 34.1 g/dL (32.0-36.0); MEAN CORPUSCULAR HEMOGLOB 30.8 pg (26.0-34.0); MEAN CORPUSCULAR VOLUME 90.3 fL (80-100); MEAN PLATELET VOLUME 11.1 fL (9.2-13.0); MONOCYTES 9.3 %; MONOCYTES ABSOLUTE 0.94 10/3/uL (0.21-1.20); NEUTROPHILS 76.1 %; NEUTROPHILS ABSOLUTE 7.69 10/3/uL (2.02-8.40); PLATELET COUNT 185 10/3/uL (150-400); RED CELL COUNT 4.54 10/6/uL (4.0-5.6); WHITE BLOOD CELLS 10.1 10/3/uL (4.5-10.5)
[2017-01-23 06:02] LABS: MANUAL DIFF NO %
[2017-01-23 06:16] LABS: A/G RATIO 1.1 (0.7-1.9); ALBUMIN 2.8 G/DL (3.5-5.0); ALKALINE PHOSPHATASE 46 U/L (45-117); BUN (BLOOD UREA NITROGEN) 15 MG/DL (6-23); CALCIUM, SERUM 7.4 MG/DL (8.5-10.4); CHLORIDE, SERUM 108 MMOL/L (96-112); CO2 (CARBON DIOXIDE) 30 MMOL/L (24-34); CREATININE 0.66 MG/DL (0.55-1.02); GFR AFRICAN AMERICAN 93 ML/MIN (>=60); GFR NON AFRICAN AMERICAN 81 ML/MIN (>=60); GLOBULIN 2.5 G/DL (2.5-4.1); GLUCOSE, SERUM 138 MG/DL (60-99); POTASSIUM, SERUM 3.8 MMOL/L (3.5-5.3); SGOT(AST) 35 U/L (5-40); SGPT(ALT) 24 U/L (5-65); SODIUM, SERUM 143 MMOL/L (135-148); TOTAL BILIRUBIN 1.2 MG/DL (0-1.2); TOTAL PROTEIN 5.3 G/DL (6.0-8.5)
[2017-01-23 17:01] LABS: ACETONE NEG
[2017-01-23 17:20] LABS: C-REACTIVE PROTEIN 4.5 MG/L (<8.0)
[2017-01-24 06:56] LABS: BASOPHILS 0.1 %; BASOPHILS ABSOLUTE 0.01 10/3/uL (0.0-0.16); EOSINOPHILS 0 %; HEMATOCRIT 39.8 % (36.0-48.0); HEMOGLOBIN 13.3 g/dL (12.0-16.0); IMMATURE GRANULOCYTES 0.4 %; IMMATURE GRANULOCYTES ABSOLUTE 0.04 10/3/uL (0.0-0.11); LYMPHOCYTES 13.1 %; LYMPHOCYTES ABSOLUTE 1.22 10/3/uL (0.67-4.30); MANUAL DIFF NO %; MEAN CORPUS HGB CONC 33.4 g/dL (32.0-36.0); MEAN CORPUSCULAR HEMOGLOB 30.6 pg (26.0-34.0); MEAN CORPUSCULAR VOLUME 91.7 fL (80-100); MEAN PLATELET VOLUME 11.6 fL (9.2-13.0); MONOCYTES 12.7 %; MONOCYTES ABSOLUTE 1.18 10/3/uL (0.21-1.20); NEUTROPHILS 73.7 %; NEUTROPHILS ABSOLUTE 6.84 10/3/uL (2.02-8.40); PLATELET COUNT 187 10/3/uL (150-400); RBC DISTRIBUTION WIDTH 13.3 % (12.0-16.0); RED CELL COUNT 4.34 10/6/uL (4.0-5.6); WHITE BLOOD CELLS 9.3 10/3/uL (4.5-10.5)
[2017-01-24 07:11] LABS: PHOSPHORUS, SERUM 2.3 MG/DL (2.5-4.5)
[2017-01-24 07:22] LABS: ALBUMIN 2.7 G/DL (3.5-5.0); BUN (BLOOD UREA NITROGEN) 12 MG/DL (6-23); CALCIUM, SERUM 7.5 MG/DL (8.5-10.4); CHLORIDE, SERUM 109 MMOL/L (96-112); CO2 (CARBON DIOXIDE) 28 MMOL/L (24-34); CREATININE 0.71 MG/DL (0.55-1.02); GFR AFRICAN AMERICAN 90 ML/MIN (>=60); GFR NON AFRICAN AMERICAN 78 ML/MIN (>=60); GLUCOSE, SERUM 121 MG/DL (60-99); POTASSIUM, SERUM 3.9 MMOL/L (3.5-5.3); SODIUM, SERUM 143 MMOL/L (135-148)
[2017-01-24 10:41] LABS: ANA TITER 1:40 TITER
[2017-01-24 10:42] LABS: ANA PATTERN HOMOGENEOUS
[2017-01-25 03:43] LABS: BASOPHILS 0 %; EOSINOPHILS 0 %; HEMATOCRIT 37.9 % (36.0-48.0); HEMOGLOBIN 12.6 g/dL (12.0-16.0); IMMATURE GRANULOCYTES 0.5 %; IMMATURE GRANULOCYTES ABSOLUTE 0.06 10/3/uL (0.0-0.11); LYMPHOCYTES 4.5 %; LYMPHOCYTES ABSOLUTE 0.59 10/3/uL (0.67-4.30); MEAN CORPUS HGB CONC 33.2 g/dL (32.0-36.0); MEAN CORPUSCULAR HEMOGLOB 30.7 pg (26.0-34.0); MEAN CORPUSCULAR VOLUME 92.2 fL (80-100); MEAN PLATELET VOLUME 11.9 fL (9.2-13.0); MONOCYTES 2.8 %; MONOCYTES ABSOLUTE 0.37 10/3/uL (0.21-1.20); NEUTROPHILS 92.2 %; NEUTROPHILS ABSOLUTE 12.16 10/3/uL (2.02-8.40); PLATELET COUNT 199 10/3/uL (150-400); RBC DISTRIBUTION WIDTH 13.6 % (12.0-16.0); RED CELL COUNT 4.11 10/6/uL (4.0-5.6)
[2017-01-25 03:46] LABS: MANUAL DIFF NO %; WHITE BLOOD CELLS 13.2 10/3/uL (4.5-10.5)
[2017-01-25 04:05] LABS: ALBUMIN 2.6 G/DL (3.5-5.0); BUN (BLOOD UREA NITROGEN) 11 MG/DL (6-23); CALCIUM, SERUM 7.5 MG/DL (8.5-10.4); CHLORIDE, SERUM 108 MMOL/L (96-112); CO2 (CARBON DIOXIDE) 23 MMOL/L (24-34); CREATININE 0.81 MG/DL (0.55-1.02); GFR AFRICAN AMERICAN 77 ML/MIN (>=60); GFR NON AFRICAN AMERICAN 66 ML/MIN (>=60); GLUCOSE, SERUM 160 MG/DL (60-99); PHOSPHORUS, SERUM 1.4 MG/DL (2.5-4.5); POTASSIUM, SERUM 4.2 MMOL/L (3.5-5.3); SODIUM, SERUM 141 MMOL/L (135-148)
[2017-01-26 07:31] LABS: ALBUMIN 2.4 G/DL (3.5-5.0); BUN (BLOOD UREA NITROGEN) 8 MG/DL (6-23); CALCIUM, SERUM 7.4 MG/DL (8.5-10.4); CHLORIDE, SERUM 112 MMOL/L (96-112); CO2 (CARBON DIOXIDE) 25 MMOL/L (24-34); CREATININE 0.69 MG/DL (0.55-1.02); GFR AFRICAN AMERICAN 92 ML/MIN (>=60); GFR NON AFRICAN AMERICAN 79 ML/MIN (>=60); GLUCOSE, SERUM 104 MG/DL (60-99); PHOSPHORUS, SERUM 2.8 MG/DL (2.5-4.5); POTASSIUM, SERUM 3.6 MMOL/L (3.5-5.3); SODIUM, SERUM 144 MMOL/L (135-148)
[2017-01-28 06:09] LABS: BASOPHILS 0.1 %; BASOPHILS ABSOLUTE 0.01 10/3/uL (0.0-0.16); EOSINOPHILS 0 %; HEMOGLOBIN 11.9 g/dL (12.0-16.0); IMMATURE GRANULOCYTES 1.3 %; IMMATURE GRANULOCYTES ABSOLUTE 0.14 10/3/uL (0.0-0.11); LYMPHOCYTES ABSOLUTE 1.16 10/3/uL (0.67-4.30); MEAN CORPUS HGB CONC 32.2 g/dL (32.0-36.0); MEAN CORPUSCULAR HEMOGLOB 30.4 pg (26.0-34.0); MEAN CORPUSCULAR VOLUME 94.6 fL (80-100); MEAN PLATELET VOLUME 11.1 fL (9.2-13.0); MONOCYTES 6.5 %; MONOCYTES ABSOLUTE 0.69 10/3/uL (0.21-1.20); NEUTROPHILS 81.1 %; NEUTROPHILS ABSOLUTE 8.56 10/3/uL (2.02-8.40); PLATELET COUNT 157 10/3/uL (150-400); RBC DISTRIBUTION WIDTH 14.7 % (12.0-16.0); RED CELL COUNT 3.91 10/6/uL (4.0-5.6); WHITE BLOOD CELLS 10.6 10/3/uL (4.5-10.5)
[2017-01-28 06:10] LABS: MANUAL DIFF NO %
[2017-01-28 06:20] LABS: BUN (BLOOD UREA NITROGEN) 6 MG/DL (6-23); CALCIUM, SERUM 7.9 MG/DL (8.5-10.4); CHLORIDE, SERUM 113 MMOL/L (96-112); CO2 (CARBON DIOXIDE) 26 MMOL/L (24-34); CREATININE 0.76 MG/DL (0.55-1.02); GFR AFRICAN AMERICAN 83 ML/MIN (>=60); GFR NON AFRICAN AMERICAN 72 ML/MIN (>=60); POTASSIUM, SERUM 4.3 MMOL/L (3.5-5.3); SODIUM, SERUM 146 MMOL/L (135-148)
[2017-01-28 06:21] LABS: GLUCOSE, SERUM 70 MG/DL (60-99)
[2017-01-29 07:30] LABS: BASOPHILS 0.1 %; BASOPHILS ABSOLUTE 0.01 10/3/uL (0.0-0.16); EOSINOPHILS 0.2 %; EOSINOPHILS ABSOLUTE 0.02 10/3/uL (0.0-0.53); HEMATOCRIT 34.7 % (36.0-48.0); HEMOGLOBIN 11.3 g/dL (12.0-16.0); IMMATURE GRANULOCYTES 1.2 %; IMMATURE GRANULOCYTES ABSOLUTE 0.14 10/3/uL (0.0-0.11); LYMPHOCYTES 8.7 %; LYMPHOCYTES ABSOLUTE 0.99 10/3/uL (0.67-4.30); MANUAL DIFF NO %; MEAN CORPUS HGB CONC 32.6 g/dL (32.0-36.0); MEAN CORPUSCULAR HEMOGLOB 30.7 pg (26.0-34.0); MEAN CORPUSCULAR VOLUME 94.3 fL (80-100); MEAN PLATELET VOLUME 11.2 fL (9.2-13.0); MONOCYTES 8.5 %; MONOCYTES ABSOLUTE 0.97 10/3/uL (0.21-1.20); NEUTROPHILS 81.3 %; NEUTROPHILS ABSOLUTE 9.27 10/3/uL (2.02-8.40); PLATELET COUNT 146 10/3/uL (150-400); RBC DISTRIBUTION WIDTH 14.6 % (12.0-16.0); RED CELL COUNT 3.68 10/6/uL (4.0-5.6); WHITE BLOOD CELLS 11.4 10/3/uL (4.5-10.5)
[2017-01-29 07:38] LABS: BUN (BLOOD UREA NITROGEN) 7 MG/DL (6-23); CALCIUM, SERUM 7.9 MG/DL (8.5-10.4); CHLORIDE, SERUM 112 MMOL/L (96-112); CO2 (CARBON DIOXIDE) 27 MMOL/L (24-34); CREATININE 0.77 MG/DL (0.55-1.02); GFR AFRICAN AMERICAN 82 ML/MIN (>=60); GFR NON AFRICAN AMERICAN 70 ML/MIN (>=60); GLUCOSE, SERUM 84 MG/DL (60-99); POTASSIUM, SERUM 4.5 MMOL/L (3.5-5.3); SODIUM, SERUM 145 MMOL/L (135-148)
[2017-01-31 11:01] LABS: CREATININE 0.96 MG/DL (0.55-1.02)
[2017-02-01 04:47] LABS: BASOPHILS 0 %; EOSINOPHILS 0 %; HEMATOCRIT 32.7 % (36.0-48.0); HEMOGLOBIN 10.4 g/dL (12.0-16.0); IMMATURE GRANULOCYTES 0.7 %; IMMATURE GRANULOCYTES ABSOLUTE 0.08 10/3/uL (0.0-0.11); LYMPHOCYTES 3.1 %; LYMPHOCYTES ABSOLUTE 0.35 10/3/uL (0.67-4.30); MEAN CORPUS HGB CONC 31.8 g/dL (32.0-36.0); MEAN CORPUSCULAR HEMOGLOB 30.5 pg (26.0-34.0); MEAN CORPUSCULAR VOLUME 95.9 fL (80-100); MEAN PLATELET VOLUME 11.8 fL (9.2-13.0); MONOCYTES 3.8 %; MONOCYTES ABSOLUTE 0.43 10/3/uL (0.21-1.20); NEUTROPHILS 92.4 %; PLATELET COUNT 131 10/3/uL (150-400); RED CELL COUNT 3.41 10/6/uL (4.0-5.6); WHITE BLOOD CELLS 11.4 10/3/uL (4.5-10.5)
[2017-02-01 04:52] LABS: MANUAL DIFF NO %
[2017-02-01 04:58] LABS: CHLORIDE, SERUM 114 MMOL/L (96-112); CO2 (CARBON DIOXIDE) 25 MMOL/L (24-34); CREATININE 0.97 MG/DL (0.55-1.02); GFR AFRICAN AMERICAN 62 ML/MIN (>=60); GFR NON AFRICAN AMERICAN 53 ML/MIN (>=60); POTASSIUM, SERUM 4.7 MMOL/L (3.5-5.3); SODIUM, SERUM 145 MMOL/L (135-148)
[2017-02-01 04:59] LABS: BUN (BLOOD UREA NITROGEN) 25 MG/DL (6-23); GLUCOSE, SERUM 128 MG/DL (60-99)
[2017-02-02 06:59] LABS: BASOPHILS 0 %; EOSINOPHILS 0 %; HEMATOCRIT 33.1 % (36.0-48.0); HEMOGLOBIN 10.5 g/dL (12.0-16.0); IMMATURE GRANULOCYTES 0.3 %; IMMATURE GRANULOCYTES ABSOLUTE 0.04 10/3/uL (0.0-0.11); LYMPHOCYTES 3.1 %; LYMPHOCYTES ABSOLUTE 0.35 10/3/uL (0.67-4.30); MEAN CORPUS HGB CONC 31.7 g/dL (32.0-36.0); MEAN CORPUSCULAR HEMOGLOB 30.2 pg (26.0-34.0); MEAN CORPUSCULAR VOLUME 95.1 fL (80-100); MEAN PLATELET VOLUME 12.1 fL (9.2-13.0); MONOCYTES 3.9 %; MONOCYTES ABSOLUTE 0.45 10/3/uL (0.21-1.20); NEUTROPHILS 92.7 %; NEUTROPHILS ABSOLUTE 10.63 10/3/uL (2.02-8.40); PLATELET COUNT 128 10/3/uL (150-400); RED CELL COUNT 3.48 10/6/uL (4.0-5.6); WHITE BLOOD CELLS 11.5 10/3/uL (4.5-10.5)
[2017-02-02 07:01] LABS: MANUAL DIFF NO %
[2017-02-02 07:13] LABS: BUN (BLOOD UREA NITROGEN) 29 MG/DL (6-23); CHLORIDE, SERUM 114 MMOL/L (96-112); CO2 (CARBON DIOXIDE) 23 MMOL/L (24-34); CREATININE 0.94 MG/DL (0.55-1.02); GFR AFRICAN AMERICAN 64 ML/MIN (>=60); GFR NON AFRICAN AMERICAN 55 ML/MIN (>=60); GLUCOSE, SERUM 111 MG/DL (60-99); POTASSIUM, SERUM 4.3 MMOL/L (3.5-5.3); SODIUM, SERUM 144 MMOL/L (135-148)
[2017-02-03 04:19] LABS: BASOPHILS 0.1 %; BASOPHILS ABSOLUTE 0.01 10/3/uL (0.0-0.16); EOSINOPHILS 0 %; HEMATOCRIT 36.5 % (36.0-48.0); HEMOGLOBIN 11.8 g/dL (12.0-16.0); IMMATURE GRANULOCYTES 0.4 %; IMMATURE GRANULOCYTES ABSOLUTE 0.06 10/3/uL (0.0-0.11); LYMPHOCYTES 1.5 %; LYMPHOCYTES ABSOLUTE 0.21 10/3/uL (0.67-4.30); MANUAL DIFF NO %; MEAN CORPUS HGB CONC 32.3 g/dL (32.0-36.0); MEAN CORPUSCULAR HEMOGLOB 30.5 pg (26.0-34.0); MEAN CORPUSCULAR VOLUME 94.3 fL (80-100); MONOCYTES 1.3 %; MONOCYTES ABSOLUTE 0.19 10/3/uL (0.21-1.20); NEUTROPHILS 96.7 %; NEUTROPHILS ABSOLUTE 13.95 10/3/uL (2.02-8.40); PLATELET COUNT 108 10/3/uL (150-400); RED CELL COUNT 3.87 10/6/uL (4.0-5.6); WHITE BLOOD CELLS 14.4 10/3/uL (4.5-10.5)
[2017-02-03 04:31] LABS: BUN (BLOOD UREA NITROGEN) 36 MG/DL (6-23); CALCIUM, SERUM 8.4 MG/DL (8.5-10.4); CHLORIDE, SERUM 109 MMOL/L (96-112); CO2 (CARBON DIOXIDE) 24 MMOL/L (24-34); CREATININE 1.01 MG/DL (0.55-1.02); GFR AFRICAN AMERICAN 59 ML/MIN (>=60); GFR NON AFRICAN AMERICAN 51 ML/MIN (>=60); GLUCOSE, SERUM 123 MG/DL (60-99); POTASSIUM, SERUM 4.1 MMOL/L (3.5-5.3); SODIUM, SERUM 143 MMOL/L (135-148)
[2017-02-03 14:30] LABS: ASCORBIC ACID (UR NOT ORDER) NEG (NEG); BILIRUBIN, URINE NEGATIVE (NEG); KETONE, URINE NEGATIVE (NEG); LEUKOCYTE ESTERASE(NOT OR NEG (NEG); WBC (NOT ORDERED) (RFLEX) 2 (0-5)
[2017-02-04 04:28] LABS: BASOPHILS 0 %; EOSINOPHILS 0 %; HEMATOCRIT 32.4 % (36.0-48.0); HEMOGLOBIN 10.7 g/dL (12.0-16.0); IMMATURE GRANULOCYTES 0.6 %; IMMATURE GRANULOCYTES ABSOLUTE 0.07 10/3/uL (0.0-0.11); LYMPHOCYTES 3.2 %; LYMPHOCYTES ABSOLUTE 0.38 10/3/uL (0.67-4.30); MANUAL DIFF NO %; MEAN CORPUSCULAR HEMOGLOB 30.8 pg (26.0-34.0); MEAN CORPUSCULAR VOLUME 93.4 fL (80-100); MEAN PLATELET VOLUME 12.8 fL (9.2-13.0); MONOCYTES 0.2 %; MONOCYTES ABSOLUTE 0.02 10/3/uL (0.21-1.20); NEUTROPHILS ABSOLUTE 11.43 10/3/uL (2.02-8.40); PLATELET COUNT 91 10/3/uL (150-400); RBC DISTRIBUTION WIDTH 15.1 % (12.0-16.0); RED CELL COUNT 3.47 10/6/uL (4.0-5.6); WHITE BLOOD CELLS 11.9 10/3/uL (4.5-10.5)
[2017-02-04 04:37] LABS: BUN (BLOOD UREA NITROGEN) 29 MG/DL (6-23); CALCIUM, SERUM 8.3 MG/DL (8.5-10.4); CHLORIDE, SERUM 108 MMOL/L (96-112); CO2 (CARBON DIOXIDE) 29 MMOL/L (24-34); CREATININE 0.78 MG/DL (0.55-1.02); GFR AFRICAN AMERICAN 80 ML/MIN (>=60); GFR NON AFRICAN AMERICAN 69 ML/MIN (>=60); GLUCOSE, SERUM 91 MG/DL (60-99); POTASSIUM, SERUM 4.2 MMOL/L (3.5-5.3); SODIUM, SERUM 143 MMOL/L (135-148)
== END 2017-02-04 17:00 | DRG 166 ==
LOC: ER 15:00 → CDU1 19:04 → CDU2 22:43 → 4EA 01-23 16:23
PROVIDERS: Internal Medicine; Internal Medicine Critical Care Medicine; Nurse Practitioner; Nurse Practitioner Adult Health
PROC: 07B74ZX Excision of Thorax Lymphatic, Percutaneous Endoscopic Approach, Diagnostic (ICD-10-PCS; principal; 2017-01-24 12:30)
DX: C34.90 Malignant neoplasm of unspecified part of unspecified bronchus or lung (principal); J96.21 Acute and chronic respiratory failure with hypoxia; C79.70 Secondary malignant neoplasm of unspecified adrenal gland; N39.0 Urinary tract infection, site not specified; H49.3 Total (external) ophthalmoplegia; H49.9 Unspecified paralytic strabismus; E87.6 Hypokalemia; I25.10 Atherosclerotic heart disease of native coronary artery without angina pectoris; I35.0 Nonrheumatic aortic (valve) stenosis; I10 Essential (primary) hypertension; J44.9 Chronic obstructive pulmonary disease, unspecified; E78.00 Pure hypercholesterolemia, unspecified; Z95.3 Presence of xenogenic heart valve
CPT/HCPCS: 70544; 70548; 70551; 71010; 71260; 74177; 80048; 80053; 80069; 81001; 81382; 82009; 82565; 82607; 82728; 82746; 82962; 83540; 83550; 83615; 83735; 83880; 84100; 84439; 84443; 84484; 85025; 85610; 85652; 85730; 86039; 86140; 86431; 88172; 88173; 88305; 88341; 88342; 88360; 93005; 94640; 96374; 97110-GP; 97116-GP; 97161-GP; 97530-GP; 99285; A9270-GY; A9577; C1725; G0463; G8978-CK-GP; G8979-CJ-GP; J1940; J2370; J2405; J3475; J9045; J9181; Q9967